=== PATIENT | male | born 2000 | race Two or more races ===

== ENCOUNTER → 2021-01-20 08:29 | Outpatient (CLI) | payer OTHER, SELFPAY ==
[2021-01-20 10:06] LABS: Microalbumin,Random Urine 10.1 mg/L (NO RANGE EST.); Microalbumin:Creatinine Ratio 6.2 mg/g CRE (<30 mg/g CRE)
[2021-01-20 10:28] LABS: Anion Gap 7 (5-15); BUN 15 mg/dL (7-18); BUN/Creat Ratio 18.3 RATIO (10-20); Calcium,Total 9.2 mg/dL (8.5-10.1); Chloride 103 mmol/L (98-107); Cholesterol 179 mg/dL (200); Creatinine, Serum 0.82 mg/dL (0.70-1.30); EST Glomerular Filtration Rate 126 mL/min (>60); Est Glom Filt Rate - Afr Amer 152 mL/min (>60); Glucose 85 mg/dL (74-106); High Density Lipoprotein 47 mg/dL; Sodium Level 139 mmol/L (136-145); Triglycerides 114 mg/dL; Very Low Density Lipoprotein 23 mg/dL (5-40)
== END ==
PROVIDERS: Visit Provider Family Medicine
DX: U07.1 COVID-19 (principal); Z00.00 Encounter for general adult medical examination without abnormal findings; R03.0 Elevated blood-pressure reading, without diagnosis of hypertension
CPT/HCPCS: 36415; 80048; 80061; 82043; 82570; 86769